=== PATIENT | female | born 1960 | race Two or more races ===

== ENCOUNTER 2019-05-30 15:46 | Emergency (ER) | payer OTHER ==
[~2019-05-30] VITALS: Ht 167.6 cm; Wt 64.4 kg
[2019-05-30] MEDS ORDERED: [UNRECOGNIZED DRUG - OTHER] PO (16:08)
== END 2019-05-30 19:04 | disposition home or self-care (01) ==
LOC: ER 15:46
DX: J11.1 Influenza due to unidentified influenza virus with other respiratory manifestations (principal); B96.0 Mycoplasma pneumoniae [M. pneumoniae] as the cause of diseases classified elsewhere

== ENCOUNTER 2021-09-09 05:50 | Day surgery (SDC) | payer OTHER ==
[~2021-09-09] VITALS: Wt 67.6 kg
[~2021-09-09 05:50] MED LIST: PREDNISONE2.5 MG PO; [UNRECOGNIZED DRUG - OTHER] PO
== END 2021-09-09 14:42 | disposition home or self-care (01) ==
LOC: CIR.AMB 05:50
PROVIDERS: ATTEND Orthopaedic Surgery Hand Surgery
DX: G56.01 Carpal tunnel syndrome, right upper limb (principal); Z20.822 Contact with and (suspected) exposure to COVID-19; Z87.891 Personal history of nicotine dependence; M19.90 Unspecified osteoarthritis, unspecified site

== ENCOUNTER 2022-02-24 05:22 | Day surgery (SDC) | payer OTHER ==
[~2022-02-24] VITALS: Ht 168.9 cm; Wt 67.1 kg
[~2022-02-24 05:22] MED LIST changes: +FOLIC ACID0.8 M1 PO
== END 2022-02-24 11:20 | disposition home or self-care (01) ==
LOC: CIR.AMB 05:22
PROVIDERS: ATTEND Orthopaedic Surgery Hand Surgery
DX: G56.02 Carpal tunnel syndrome, left upper limb (principal); Z87.891 Personal history of nicotine dependence; M06.9 Rheumatoid arthritis, unspecified